=== PATIENT | female | born 1945 | race Caucasian/White ===

== ENCOUNTER 2016-11-29 09:47 | Emergency (ER) | payer OTHER ==
[~2016-11-29] VITALS: Ht 157.5 cm; Wt 73.3 kg
[~2016-11-29 09:47] MED LIST: PROAIR HFA8.5 GM IH; ULTRAM50 MG PO; ZITHROMAX Z-PA250 MG PO
[2016-11-29 11:04] LABS: HEMATOCRIT 39.7 % (36.0-46.0); MCH 27.8 PG (29.0-34.0); MCHC 31.7 G/DL (30.0-36.0); MCV 87.6 FL (83-99); PLATELET COUNT 361 K/uL (156-360); RBC DIS.WIDTH-CV 13.3 % (11.8-14.6); RBC DIS.WIDTH-SD 42.7 % (39-53); RED BLOOD COUNT 4.53 M/uL (3.80-5.20); WHITE BLOOD COUNT 9.6 K/uL (4.1-10.2)
[2016-11-29 11:15] LABS: CHLORIDE 105 mEq/L (99-109); POTASSIUM 3.8 mEq/L (3.7-5.4); SODIUM 138 mEq/L (136-147)
[2016-11-29 11:18] LABS: GLUCOSE 154 mg/dL (70-99)
[2016-11-29 11:19] LABS: ANION GAP 11 MEQ/L (2-14); TOTAL BILIRUBIN 0.4 mg/dL (0.0-1.0)
[2016-11-29 11:21] LABS: ALKALINE PHOSPHATASE 99 IU/L (3-129); GFR ESTIMATE (CALCULATED) > 59 mL/min/
[2016-11-29 11:22] LABS: UREA NITROGEN (BUN) 23 mg/dL (9-23)
[2016-11-29 11:23] LABS: DIRECT BILIRUBIN 0.2 mg/dL (0.0-0.3)
[2016-11-29 11:25] LABS: LIPASE 23 U/L (1.0-51.0); TROP-I INTERPRETATION NEGATIVE; TROPONIN-I < 0.01 ng/mL (0.0-0.30)
[2016-11-29 13:40] LABS: TROP-I INTERPRETATION NEGATIVE; TROPONIN-I < 0.01 ng/mL (0.0-0.30)
[2016-11-29] MEDS ORDERED: PERCOCET 5/31 TABLET PO (14:40)
[2016-11-29] MEDS ORDERED: ZOFRAN ODT4 MG PO (14:40)
[2016-11-29] MEDS ORDERED: AUGMENTIN875 MG PO (14:40)
[2016-11-29 15:24] VITALS: BP 125/75
== END 2016-11-29 15:32 | disposition home or self-care (01) ==
LOC: EME 09:47
PROVIDERS: Emergency Medicine
DX: K81.9 Cholecystitis, unspecified (principal); I10 Essential (primary) hypertension; Z87.891 Personal history of nicotine dependence
CPT/HCPCS: 71020; 76705; 80048; 80076; 83690; 84484; 85027; 93005; 99281; 99285; J2270; J2405; J7030

== ENCOUNTER 2017-01-29 05:21 | Day surgery (SDC) | payer OTHER ==
[~2017-01-29] VITALS: Ht 157.5 cm; Wt 72.5 kg
[~2017-01-29 05:21] MED LIST changes: +AUGMENTIN875 MG PO; +BUPROPION HCL200 M1 PO; +LEVO-T125 MCG PO; +PERCOCET 5/31 TABLET PO; +PRINIVIL20 MG PO; +ZOFRAN ODT4 MG PO
[2017-01-29 06:19] VITALS: BP 132/72
[2017-01-29 06:20] VITALS: BP 132/72
[2017-01-29] MEDS ORDERED: HYDROCODON-ACE1 EAC7 PO (09:44)
[2017-01-29 10:53] VITALS: BP 114/76
[2017-01-29 12:00] VITALS: BP 120/66
== END 2017-01-29 15:00 | disposition home or self-care (01) ==
LOC: SDC 05:21
DX: K80.10 Calculus of gallbladder with chronic cholecystitis without obstruction (principal); I10 Essential (primary) hypertension; J44.9 Chronic obstructive pulmonary disease, unspecified; F41.9 Anxiety disorder, unspecified; E03.9 Hypothyroidism, unspecified; K21.9 Gastro-esophageal reflux disease without esophagitis
CPT/HCPCS: 88304; J0131; J1100; J1170; J1644; J2405; J2710; J3010; S0020

== ENCOUNTER 2018-01-09 10:55 | Emergency (ER) | payer OTHER ==
[~2018-01-09] VITALS: Ht 157.5 cm; Wt 76.1 kg
[~2018-01-09 10:55] MED LIST changes: +HYDROCODON-ACE1 EAC7 PO
[2018-01-09] MEDS ORDERED: MOTRIN800 MG PO (11:59)
[2018-01-09] MEDS ORDERED: KEFLEX500 MG PO (11:59)
[2018-01-09 12:31] VITALS: BP 115/75
== END 2018-01-09 12:32 | disposition home or self-care (01) ==
LOC: EME 10:55
DX: N76.4 Abscess of vulva (principal); I10 Essential (primary) hypertension; K21.9 Gastro-esophageal reflux disease without esophagitis; E03.9 Hypothyroidism, unspecified; Z87.891 Personal history of nicotine dependence; Z90.49 Acquired absence of other specified parts of digestive tract; Z96.651 Presence of right artificial knee joint; Z88.5 Allergy status to narcotic agent
CPT/HCPCS: 99281; 99283